=== PATIENT | female | born 1975 | race Caucasian/White ===

== ENCOUNTER 2016-10-25 22:38 | Emergency (ER) | payer OTHER ==
[2016-10-25] MEDS ORDERED: LIDOCAINE 2% UROJECT 10 ML ONE (23:45)
[2016-10-26 00:09] LABS: URINE BILIRUBIN NEGATIVE (NEGATIVE); URINE BLOOD NEGATIVE (NEGATIVE); URINE GLUCOSE (UA) NEGATIVE (NEGATIVE); URINE LEUKOCYTE ESTERASE NEGATIVE (NEGATIVE); URINE NITRITE NEGATIVE (NEGATIVE); URINE PROTEIN NEGATIVE (NEGATIVE); URINE UROBILINOGEN NORMAL (0-1 mg/dl)
[2016-10-26 00:16] LABS: URINE APPEARANCE CLEAR; URINE COLOR YELLOW
[2016-10-26] MEDS ORDERED: ENEMA--adult 1 EACH ONE (01:49)
--- NOTE | 2016-10-26 08:02 | CT ---
ABD/PELVIS W/O CON: 10/26/2016 12:41 AM INDICATION: Suprapubic pain with urinary retention. COMPARISON: None. TECHNIQUE: Contiguous 3 mm transaxial images from a [employer] [address] scanner were obtained from the lung bases through the pubic symphysis without oral or intravenous contrast. Multiplanar images were created at the CT scanner. CT DI: 20.5 DLP: 1167.5 FINDINGS: Lung base: At least 2 5 mm nodules are present at the left base. First is noted within the lingula on image 9 along the anterolateral aspect. Second is on image 11 along the lateral aspect of the lower lobe. There is no pericardial effusion. This examination is limited for the evaluation of solid organs and vascular structures due to the lack of intravenous contrast which is standard for urinary calculus assessment CT. Liver: Normal. Gallbladder: Normal Spleen: Normal. Pancreas: Normal. Adrenal Glands: Normal. Right kidney & ureter: - Calculi - No . - Ureter Calculi - No. - Obstruction / hydronephrosis - No Left kidney & ureter: - Calculi - No . - Ureter Calculi- No . - Obstruction / hydronephrosis - No The unopacified stomach and bowel is within normal limits in A moderate amount of stool is noted at the level of the rectum. Correlation with exam for constipation would be recommended.. No lymphadenopathy is seen in the abdomen or pelvis No free fluid in the abdomen or pelvis. Urinary bladder: -Bladder Calculi- No . - Bladder is decompressed. Matthews catheter is noted. - Wall is thin. Bone windows- No lytic or sclerotic lesions. Spine maintains anatomic alignment. IMPRESSION: 1. No urinary tract calculi. No specific cause for the patient's stated suprapubic pain. For catheter is present within the urinary bladder. 2. Non-contrast evaluation of the abdomen and pelvis is otherwise notable for 2 5 mm pulmonary nodules at the left base. Per the new Fleischner Society criteria if the patient is at low risk no further follow-up would be necessary. However if the patient is high risk, history of tobacco use for example, CT in 12 months could be obtained. Given the patient does not have any prior chest imaging in the [facility], correlation with any prior outside imaging would be recommended. If no prior chest CT is available, consideration for evaluation of the remainder of the chest should be made to assess for other areas of abnormality. Preliminary report was provided by [facility] at approximately 0125 hours on 10/26/2016.
== END 2016-10-26 02:32 | disposition home or self-care (01) ==
LOC: ED 22:38
DX: R33.9 Retention of urine, unspecified (principal); K59.00 Constipation, unspecified; J45.909 Unspecified asthma, uncomplicated
CPT/HCPCS: 81003; 74176; 99283 ×2; 51702; 51798; A9270 ×2